=== PATIENT | male | born 1985 | race Caucasian/White ===

== ENCOUNTER 2017-10-11 18:42 | Emergency (ER) | payer BC ==
[~2017-10-11] VITALS: Ht 177.8 cm; Wt 90.7 kg
[2017-10-11 18:57] LABS: POC CA IONIZED 4.3 mg/dL (4.5-5.3); POC CREATININE 1.4 mg/dL (0.6-1.3); POC HEMOGLOBIN 13.3 g/dL (12.0-17.0); POC POTASSIUM 3.3 mmol/L (3.5-4.9)
[2017-10-11 19:01] LABS: ABSOLUTE BASOPHILS 0.1 thou/uL (0.0-0.2); ABSOLUTE EOSINOPHILS 0.2 thou/uL (0.0-0.7); ABSOLUTE MONOCYTES 0.5 thou/uL (0.0-1.2); BASOPHILS 0.8 %; EOSINOPHILS 2.3 %; HEMATOCRIT 42.7 % (42.0-52.0); HEMOGLOBIN 14.3 gm/dL (14.0-18.0); LYMPHOCYTES 39.1 %; MCH 30.7 pg (26.0-34.0); MCHC 33.6 g/dL (28.0-37.0); MCV 91.3 fL (80.0-100.0); MONOCYTES 6.5 %; MPV 7.6 fl. (7.2-11.1); NUCLEATED RBCS 0 /100WBC; PLATELET COUNT* 325 thou/uL (150-400); POLYS 51.3 %; RBC 4.68 mil/uL (4.50-6.00); RDW-CV 13.4 % (10.5-14.5); WBC 7.7 thou/uL (4.0-11.0)
[2017-10-11 19:03] LABS: INR 1.1; PROTIME 10.6 Seconds (9.20-11.50)
[2017-10-11 19:04] LABS: CALCIUM 8.5 mg/dL (8.5-10.1); CREATININE 1.2 mg/dL (0.6-1.3); POTASSIUM 3.5 mmol/L (3.5-5.1)
[2017-10-11 19:08] LABS: ALBUMIN 3.9 g/dL (3.4-5.0); TOTAL BILIRUBIN 0.3 mg/dL (<0.1-1.0); TOTAL PROTEIN 7.2 g/dL (6.4-8.2)
[2017-10-11 19:27] LABS: ALCOHOL 189 mg/dL (<10); SALICYLATE < 2.8 mg/dL (2.8-20.0)
[2017-10-11 19:28] LABS: ACETAMINOPHEN < 2 ug/mL (10-30)
[2017-10-11] MEDS ORDERED: ADDERALL 30 MG30 MG (19:45)
[2017-10-11] MEDS ORDERED: LISINOPRIL20 MG (19:46)
[2017-10-11] MEDS ORDERED: NORCO 10-325 T1 EACH PO (22:00)
[2017-10-11] MEDS ORDERED: FLEXERIL PO (22:00)
[2017-10-11 23:42] LABS: URINE BILIRUBIN NEGATIVE (Negative); URINE BLOOD 1+ (Negative); URINE CLARITY CLEAR; URINE COLOR YELLOW; URINE GLUCOSE-RANDOM NEGATIVE (Negative); URINE KETONES NEGATIVE (Negative); URINE LEUKOCYTES NEGATIVE (Negative); URINE NITRITE NEGATIVE (Negative); URINE PROTEIN NEGATIVE (Negative); URINE SPECIFIC GRAVITY 1.015 (1.005-1.030); URINE UROBILINOGEN 0.2 E.U./dl (0.2-1.0)
[2017-10-11 23:50] VITALS: BP 140/87
[2017-10-11 23:55] LABS: AMP/METHAMP Negative (Negative); BARBITURATES Negative (Negative); BENZODIAZEPINES Negative (Negative); COCAINE Negative (Negative); METHADONE Negative (Negative); OPIATES POSITIVE (Negative); PCP Negative (Negative); THC POSITIVE (Negative)
[2017-10-12 00:15] LABS: BACTERIA 1-9 Few /HPF (None Seen); CASTS None Seen /LPF (None Seen); CRYSTALS None Seen /LPF (None Seen); MUCUS 0-3 Light strn/LPF (None Seen); SQUAMOUS 0-3 Few /LPF (0-3); URINE RBC 3-10 Few /HPF (0-2); URINE WBC None Seen /HPF (0-5)
== END 2017-10-12 00:14 | disposition short-term general hospital (02) ==
LOC: M.ERS 18:42
PROVIDERS: Emergency Medicine; Family Medicine
DX: S22.39XA Fracture of one rib, unspecified side, initial encounter for closed fracture (principal); S01.81XA Laceration without foreign body of other part of head, initial encounter; V86.99XA Unspecified occupant of other special all-terrain or other off-road motor vehicle injured in nontraffic accident, initial encounter; Y93.89 Activity, other specified; Y92.89 Other specified places as the place of occurrence of the external cause; Y99.8 Other external cause status